=== PATIENT | male | born 1990 | race Caucasian/White ===

== ENCOUNTER 2019-06-14 10:45 | Emergency (ER) | payer OTHER ==
--- NOTE | 2019-06-14 10:52 | UC ---
Respiratory Complaint HPI - HPI Summary HPI Summary: 29 y/o male presents to the urgent care c/o sinus congestion w/ clear nasal discharge w/ an intermittent dry cough for the past 3 days. Pt reports her sisters toddler was taken to the ER yesterday and was tested for COVID. He is not sure what was the Dx. He doesn't live with her niece, but he was with her over the weekend and then his symptoms started. Pt has felt fatigue and chills, but denies fever, SOB, SHAH, dizziness, chest pain, abdominal pain, N/V/D. He has good appetite and drinking plenty of fluids. He has also taken Mucinex PO to alleviate symptoms. - History of Current Complaint Stated Complaint: CONGESTION,COUGH Time Seen by Provider: 06/14/19 10:50 Hx Obtained From: Patient Onset/Duration: Gradual Onset, Lasting Days - 3 days nasal congestion and dry cough, Still Present Timing: Intermittent Episodes Severity Initially: Mild Severity Currently: Mild Pain Intensity: 0 Pain Scale Used: 0-10 Numeric Character: Cough: Nonproductive - dry intermittent Alleviating Factors: OTC Meds - Mucinex PO Associated Signs And Symptoms: Positive: Chills, URI, Nasal Congestion - clear, Sinus Discomfort. Negative: Fever, Wheezing - Risk Factors Pulmonary Embolism Risk Factors: Negative Cardiac Risk Factors: Negative Pseudomonas Risk Factors: Negative Tuberculosis Risk Factors: Negative - Allergies/Home Medications Allergies/Adverse Reactions: Allergies Allergy/AdvReac Type Severity Reaction Status Date / Time No Known Allergies Allergy Verified 06/14/19 10:53 Home Medications: Home Medications D-Methorphan/PE/Acetaminophen [Day Time Cold-Flu Liquid] 1 dose PO ONCE [History Confirmed 06/14/19] Phenylephrine/Dm/Acetaminop/GG [Mucinex Fast-Max Cold-Flu Cplt] 1 dose PO ONCE 06/14/19 [History Confirmed 06/14/19] PMH/Surg Hx/FS Hx/Imm Hx Previously Healthy: Yes - Pt denies PMHX - Family History Known Family History: Positive: None - Pt denies FMHX - Social History Occupation: Employed Full-time Lives: With Family Review of Systems All Other Systems Reviewed And Are Negative: Yes Constitutional: Positive: Chills, Fatigue Skin: Positive: Negative Eyes: Positive: Negative ENT: Positive: Nasal Discharge - clear, Sinus Congestion Respiratory: Positive: Cough - dry Cardiovascular: Positive: Negative Gastrointestinal: Positive: Negative Genitourinary: Positive: Negative Motor: Positive: Negative Neurovascular: Positive: Negative Musculoskeletal: Positive: Myalgia Neurological/Mental Status: Positive: Negative Psychological: Positive: Negative Is Patient Immunocompromised?: No Physical Exam - Summary Physical Exam Summary: VITAL SIGNS: Reviewed. GENERAL: Patient is a well developed and nourished male who is sitting comfortably in the examining table. Patient is not in any acute respiratory distress. HEAD AND FACE: No signs of trauma. No ecchymosis, hematomas or skull depressions. No sinus tenderness. EYES: PERRLA, EOMI x 2, No injected conjunctiva, no nystagmus. No photophobia. EARS: Hearing grossly intact. Ear canals and tympanic membranes are within normal limits. MOUTH: Positive pharynx with mild erythema, no exudates, No B/L tonsillar enlargement , no exudate. Uvula in midline. edematous nasal mucosa w/ clear nasal discharge, clear PND NECK: Supple, trachea is midline, Positive anterior cervical lymphadenopathy, no JVD, no carotid bruit, no c-spine tenderness, neck with full ROM. No meningeal signs, no Kernig's or brudzinskis signs. CHEST: Symmetric, no tenderness at palpation LUNGS: Clear to auscultation bilaterally. No wheezing or crackles. CVS: Regular rate and rhythm, S1 and S2 present, no murmurs or gallops appreciated. ABDOMEN: Soft, non-tender. No signs of distention. No rebound no guarding, and no masses palpated. Bowel sounds are normal. EXTREMITIES: FROM in all major joints, no edema, no cyanosis or clubbing. NEURO: Alert and oriented x 3. No acute neurological deficits. Pt follows commands. SKIN: Dry and warm. Triage Information Reviewed: Yes Respiratory Course/Dx - Course Course Of Treatment: 29 y/o male presents to the urgent care c/o sinus congestion w/ clear nasal discharge w/ an intermittent dry cough for the past 3 days. Pt reports her sisters toddler was taken to the ER yesterday and was tested for COVID. He is not sure what was the Dx. He doesn't live with her niece, but he was with her over the weekend and then his symptoms started. Pt has felt fatigue and chills, but denies fever, SOB, SHAH, dizziness, chest pain, abdominal pain, N/V/D. He has good appetite and drinking plenty of fluids. He has also taken Mucinex PO to alleviate symptoms. Hx obtained. Pt w/ URI on examination. Rapid strep ordered, result: negative. Influenza A&B : negative. COVID19 testing ordered since Pt w/ possible exposure. Pt advised results will have a turn over of 3-6 days. Pt advised to quarantine while waiting for the results. He will be notified of the results for COVID19. Pt advised to take Tylenol to alleviate symptoms. Increase hydration and boost his immune system by eating well, taking Vitamin C and avoiding strenuous exercise. D/C instructions explained. Pt understood and agreed w/ plan of care. - Differential Dx/Diagnosis Differential Diagnosis/HQI/PQRI: Bronchitis, Influenza, Laryngitis, Lower Resp Infection, Sinusitis, Other - pharyngitis Provider Diagnosis: Upper respiratory infection Discharge ED - Sign-Out/Discharge Documenting (check all that apply): Patient Departure - D/C home All imaging exams completed and their final reports reviewed: No Studies - Discharge Plan Condition: Stable Disposition: HOME Patient Education Materials: Upper Respiratory Infection (ED) Forms: COVID-19 Tested & Isolation Referrals: [facility] [place] [facility]IAN REFERRAL [Outside] - 3 Days Additional Instructions: 1-Please continue taking Mucinex PO . If you develop fever please take Tylenol PO q6-8hrs prn as instructed after meals to alleviate fever, and symptoms. Increase fluid intake, eat well, rest, sleep well and avoid strenuous exercise 2-If symptoms do not improve or worsen please return to the urgent care or f/u with your PCP in 3 days for further evaluation and treatment. 3- Rapid Influenza A&B: negative. Rapid Strep: negative Isolation - important Facts to Know after being Tested (For patients who are tested and followed by our office) Please note that after being tested, you must go straight home, since you are now on mandatory home isolation as directed by the Health Department. Your test is expected to return in about one week and you will be contacted with the result of your test. Our office will contact you daily on behalf of the Health Department to ensure that you are in compliance with mandatory home isolation. What does mandatory isolation mean? You must go straight home without any stops on the way. You must stay from all others in your home (even children - for their safety), If possible, use a bathroom that only you use. If this is not possible, it must be disinfected after you use it, or you may use a commode in your bedroom. Sleep in a separate bedroom and have all meals etc. brought to your bedroom door. Visitors or non-household members are not allowed to enter your home for the duration of the isolation period. You cannot go to work, school, public places, or social gatherings. You are not to leave home for any purpose until you receive negative results and your status permits it and are counseled by your doctor. The following advice may be of help: Household Members: Household members are to remain from you inside your home and will not be allowed to use your bedroom or bathroom. Visitors: Visitors or non-household members are not allowed to enter your home for the duration of the isolation period. If you develop new symptoms or need medical treatment: call your primary care practitioner for direction first. Please do not go to the ER or Urgent Care without speaking to your doctor. In case of emergency call 911. You must state that you are under isolation for COVID-19 testing. Important points: You will be informed about your results as soon as they come in it could take about a week. If your test is negative, you are released from isolation if your condition permits. You should remain home for as long as you have symptoms, including but not limited to cough, higher than normal temperature for you, or shortness of breath. If you have no symptoms but did have an exposure you will have to remain in quarantine for the full 14 days. If your test is positive, remain in isolation and you can expect a phone call from the health department also for further instructions. Please comply with your isolation for the sake of your loved ones and others. We understand this is a difficult time for you and our community. We want you to know that all of us and the Health Department are here to provide care for you and your family. We are sorry for the difficulties this situation is causing you. Please remain calm and act responsibly - Billing Disposition and Condition Condition: STABLE Disposition: Home
[2019-06-14 11:28] VITALS: BP 127/59
[2019-06-14 11:47] LABS: Influenza A Molecular Negative (Negative); Influenza B Molecular Negative (Negative)
== END 2019-06-14 11:56 | disposition home or self-care (01) ==
LOC: UCCORT 10:45
DX: J06.9 Acute upper respiratory infection, unspecified (principal)
CPT/HCPCS: 87635; 87651; 99201; G0463